=== PATIENT | male | born 1930 | race Caucasian/White ===

== ENCOUNTER 2016-12-29 11:58 | Day surgery (SDC) | payer BC ==
--- NOTE | ~2016-12-29 | EGD ---
EGD REPORT [facility] [place] [address] [address] NAME: ASTON SERRANO JR : 34 [place] [facility] [place] [id number] AGE: 86 ADM/REG DATE : 12/29/16 MR#: [id number] REPORT SERV DATE: 12/29/16 DICTATED BY: ANIYA LIZARRAGA DATE: 12/29/16 REPORT STATUS : Draft TRANSCRIBED BY: [facility] DATE: 12/29/16 Endoscopy Center Patient Name: Aston Serrano Jr Date of : 1930 Attending MD: ANIYA LIZARRAGA MD Procedure Date No Time: 12/29/2016 Procedure: Colonoscopy Indications: Rectal bleeding Referring MD: TIM HUMMEL MD Medicines: Propofol per Anesthesia Complications: No immediate complications. Procedure: Pre-Anesthesia Assessment: - ASA Grade Assessment: III - A patient with severe systemic disease. After I obtained informed consent, the scope was passed under direct vision. Throughout the procedure, the patient's blood pressure, pulse, and oxygen saturations were monitored continuously. The [facility] H190L [id number] was introduced through the anus and advanced to the terminal ileum, with identification of the appendiceal orifice and IC valve. The colonoscopy was performed without difficulty. The patient tolerated the procedure well. The quality of the bowel preparation was good. Findings: The perianal and digital rectal examinations were normal. Two sessile polyps were found in the transverse colon. The polyps were 2 to 3 mm in size. These polyps were removed with a cold biopsy forceps. Resection and retrieval were complete. Two sessile polyps were found in the recto-sigmoid colon. The polyps were 3 to 4 mm in size. These polyps were removed with a cold biopsy forceps. Resection and retrieval were complete. Multiple small and large-mouthed diverticula were found in the entire colon. Internal hemorrhoids were found during retroflexion and were Grade I (internal hemorrhoids that do not prolapse). The terminal ileum appeared normal. There was a small lipoma, in the sigmoid colon. Impression: - Two 2 to 3 mm polyps in the transverse colon. Resected and retrieved. - Two 3 to 4 mm polyps at the recto-sigmoid colon. Resected and retrieved. - Diverticulosis in the entire examined colon. - Internal hemorrhoids. EGD REPORT [address] [address] NAME: ASTON SERRANO JR : 34 [place] [facility] [place]#: [id number] AGE: 86 ADM/REG DATE : 12/29/16 MR#: [id number] REPORT SERV DATE: 12/29/16 DICTATED BY: ANIYA LIZARRAGA DATE: 12/29/16 REPORT STATUS : Draft TRANSCRIBED BY: [employer] DATE: 12/29/16 - The examined portion of the ileum was normal. - Small lipoma in the sigmoid colon. Recommendation: - Await pathology results. - Query if recent bleeding was hemorrhoidal. Anuosl HC suppository at bedtime for 5 days. - Resume warfarin tomorrow. - If recurrent bleeding, may consider Pillcam. Procedure Code(s): --- Professional --- 73482, Colonoscopy, flexible, proximal to splenic flexure; with biopsy, single or multiple Diagnosis Code(s): --- Professional --- D12.7, Benign neoplasm of rectosigmoid junction D12.3, Benign neoplasm of transverse colon K64.0, First degree hemorrhoids K57.30, Diverticulosis of large intestine without perforation or abscess without bleeding K62.5, Hemorrhage of anus and rectum CPT copyright 2013 [employer]. All rights reserved. The codes documented in this report are preliminary and upon outpatient coder review may be revised to meet current compliance requirements. ANIYA LIZARRAGA MD 12/29/2016 1:53 PM This report has been signed electronically. Number of Addenda: 0 Note Initiated On: 12/29/2016 1:15 PM Scope Withdrawal Time 0 hours 13 minutes 41 seconds [address] [address]
--- NOTE | ~2016-12-29 | EGD ---
EGD REPORT [facility] [address] [id number] NAME: ASTON SERRANO JR : 34 [place] [facility] [place] [id number] AGE: 86 ADM/REG DATE : 12/29/16 MR#: [id number] REPORT SERV DATE: 12/29/16 DICTATED BY: ANIYA LIZARRAGA DATE: 12/29/16 REPORT STATUS : Draft TRANSCRIBED BY: [facility] DATE: 12/29/16 Endoscopy Center Patient Name: Aston Serrano Jr Date of : 1930 Attending MD: ANIYA LIZARRAGA MD Procedure Date No Time: 12/29/2016 Procedure: Upper GI endoscopy Indications: Recent gastrointestinal bleeding Referring MD: TIM HUMMEL MD Medicines: Propofol per Anesthesia Complications: No immediate complications. Procedure: Pre-Anesthesia Assessment: - ASA Grade Assessment: III - A patient with severe systemic disease. After obtaining informed consent, the endoscope was passed under direct vision. Throughout the procedure, the patient's blood pressure, pulse, and oxygen saturations were monitored continuously. The [facility] H190 [id number] was introduced through the mouth, and advanced to the third part of duodenum. The upper GI endoscopy was accomplished without difficulty. The patient tolerated the procedure well. Findings: The examined esophagus was normal. A small hiatus hernia was found. Localized minimal inflammation characterized by congestion (edema) was found in the prepyloric region of the stomach. Biopsies were taken with a cold forceps for histology. A large diverticulum was found in the third part of the duodenum. Impression: - Normal esophagus. - Hiatus hernia. - Gastritis. Biopsied. - Duodenal diverticulum. Recommendation: - Await pathology results. Procedure Code(s): --- Professional --- 06577, Esophagogastroduodenoscopy, flexible, transoral; with biopsy, single or multiple Diagnosis Code(s): --- Professional --- K44.9, Diaphragmatic hernia without obstruction or gangrene EGD REPORT [facility] [address] [facility] [place]. [address] NAME: ASTON SERRANO JR : 34 [place] [facility] [place] [id number] AGE: 86 ADM/REG DATE : 12/29/16 MR#: [id number] REPORT SERV DATE: 12/29/16 DICTATED BY: ANIYA LIZARRAGA. DATE: 12/29/16 REPORT STATUS : Draft TRANSCRIBED BY: [employer] DATE: 12/29/16 K29.70, Gastritis, unspecified, without bleeding K57.10, Diverticulosis of small intestine without perforation or abscess without bleeding K92.2, Gastrointestinal hemorrhage, unspecified CPT copyright 2013 [employer]. All rights reserved. The codes documented in this report are preliminary and upon custom car builder review may be revised to meet current compliance requirements. ANIYA LIZARRAGA MD 12/29/2016 1:49 PM This report has been signed electronically. Number of Addenda: 0 Note Initiated On: 12/29/2016 1:17 PM Scope Withdrawal Time 0 hours 0 minutes 0 seconds [address] [place] [address]
[~2016-12-29 11:58] MED LIST: AVODART PO; COUMADIN4 MG PO; COZ50 PO; HCTZ25B PO; L20 PO; LIPITOR40 PO; LOP100 PO; MICARDIS40 PO; SYN112 PO; ZOCOR40 PO
[2016-12-29 12:28] LABS: INTERNATIONAL NORMAL RATI 1.5 UNITS (-)
[2016-12-29 12:32] LABS: PROTIME (NOT ORD) 18.1 SEC (12.0-14.5)
[2017-06-17] MEDS ORDERED: LEVOTHYROXIN25 MCG PO (06:07)
[2017-06-17] MEDS ORDERED: LOP100 PO (06:07)
[2017-06-17] MEDS ORDERED: L20 PO (06:08)
== END 2016-12-29 23:59 | disposition home or self-care (01) ==
LOC: DMU 11:58
PROVIDERS: Anesthesiology; Internal Medicine Gastroenterology
PROC: 0DB68ZX Excision of Stomach, Via Natural or Artificial Opening Endoscopic, Diagnostic (ICD-10-PCS; 2016-12-29)
PROC: 0DBL8ZZ Excision of Transverse Colon, Via Natural or Artificial Opening Endoscopic (ICD-10-PCS; principal; 2016-12-29 13:30)
PROC: 0DBN8ZZ Excision of Sigmoid Colon, Via Natural or Artificial Opening Endoscopic (ICD-10-PCS; 2016-12-29 13:30)
DX: D12.3 Benign neoplasm of transverse colon (principal); D12.7 Benign neoplasm of rectosigmoid junction; K63.5 Polyp of colon; K57.30 Diverticulosis of large intestine without perforation or abscess without bleeding; K64.0 First degree hemorrhoids; K44.9 Diaphragmatic hernia without obstruction or gangrene; K57.10 Diverticulosis of small intestine without perforation or abscess without bleeding; I10 Essential (primary) hypertension; I48.91 Unspecified atrial fibrillation; E03.9 Hypothyroidism, unspecified; N40.0 Benign prostatic hyperplasia without lower urinary tract symptoms; D64.9 Anemia, unspecified; E66.9 Obesity, unspecified; Z68.33 Body mass index [BMI] 33.0-33.9, adult; Z95.0 Presence of cardiac pacemaker; Z79.01 Long term (current) use of anticoagulants; Z79.899 Other long term (current) drug therapy
CPT/HCPCS: 85610; 88305